=== PATIENT | male | born 1990 | race Caucasian/White ===

== ENCOUNTER 2018-07-15 00:47 | Emergency (ER) | payer OTHER ==
[~2018-07-15] VITALS: Ht 185.4 cm; Wt 81.7 kg
[2018-07-15] MEDS ORDERED: Veetids 500500 MG PO (03:04)
== END 2018-07-15 03:35 | disposition home or self-care (01) ==
LOC: ER 00:47
DX: K02.9 Dental caries, unspecified (principal); F17.200 Nicotine dependence, unspecified, uncomplicated
CPT/HCPCS: 99282